=== PATIENT | male | born 1960 | race Two or more races ===

== ENCOUNTER 2019-02-01 12:37 | Outpatient (CLI) | payer BC ==
--- NOTE | 2019-02-01 14:29 | Diagnostic Imaging Report ---
Indication: Knee pain 2 views of the right knee were obtained. Findings: No acute fracture, malalignment, or joint effusion are identified. Joint space is relatively well-maintained. Bone mineralization is within normal limits for age. Impression: Negative exam
== END 2019-02-01 14:37 | disposition home or self-care (01) ==
LOC: RAD 12:37
DX: M25.561 Pain in right knee (principal)